=== PATIENT | male | born 1995 | race African-American/Black ===

== ENCOUNTER 2023-08-08 07:58 | Emergency (ER) | payer MEDICAID, OTHER ==
[~2023-08-08] VITALS: Ht 175.3 cm; Wt 60.4 kg
[2023-08-08 08:23] VITALS: BP 142/79; PULSE 79; RESP 16; TEMP 97.4; O2SAT 97
[2023-08-08] MEDS ORDERED: NAPR-746 PO (08:40)
[2023-08-08] MEDS ORDERED: BACL10TA PO (08:40)
[2023-08-08] MEDS: ACETAMINOPHEN 500 MG TAB PO ONE (08:44)
== END 2023-08-08 08:51 | disposition home or self-care (01) ==
LOC: ER 07:58
DX: S16.1XXA Strain of muscle, fascia and tendon at neck level, initial encounter (principal); Z79.899 Other long term (current) drug therapy; X58.XXXA Exposure to other specified factors, initial encounter; Y93.89 Activity, other specified; Y92.89 Other specified places as the place of occurrence of the external cause; Y99.8 Other external cause status
CPT/HCPCS: 72040